=== PATIENT | female | born 1980 | race Caucasian/White ===

== ENCOUNTER 2019-03-22 23:05 | Emergency (ER) | payer SELFPAY ==
[2019-03-22] MEDS ORDERED: ONDANSETRON 4 MG INJ IV (23:31)
[2019-03-22] MEDS ORDERED: SOD CHLORIDE 0.9% 1,000 ML IV (23:31)
== END 2019-03-23 00:05 | disposition left against medical advice (07) ==
LOC: E/R 23:05
DX: O26.893 Other specified pregnancy related conditions, third trimester (principal); R55 Syncope and collapse; Z3A.33 33 weeks gestation of pregnancy
CPT/HCPCS: 82962; 93005; 99283-25